=== PATIENT | male | born 1980 | race African-American/Black ===

== ENCOUNTER 2016-10-25 13:11 | Emergency (ER) | payer SELFPAY ==
[~2016-10-25] VITALS: Ht 188 cm; Wt 80.0 kg
[~2016-10-25 13:11] MED LIST: CYCL1TAB29 PO; IBUP800T23 PO
[2016-10-25 13:13] VITALS: BP 147/101; PULSE 109; RESP 14; TEMP 98.1; O2SAT 99
[2016-10-25] MEDS ORDERED: IBUP800T23 PO (14:41)
[2016-10-25] MEDS ORDERED: ROBA500T PO (14:41)
--- NOTE | 2016-10-25 14:41 | PD ---
HPI Chief Complaint: Back/ Neck Pain or Injury Time Seen by Provider: 14:39 Travel History International Travel<30 days: No Contact w/Intl Traveler<30days: No Traveled to known affect area: No History of Present Illness HPI 36-year-old male presents to the emergency Department with complaint of right lower back pain after moving wheelbarrows full of bricks yesterday. Denies encopresis, incontinence, saddle anesthesias. Denies paresthesias, loss of sensation, decreased range motion, decreased strength to bilateral lower extremities. Has not taken any medication or drainage from it to the base symptoms. Denies fever, chills, nausea, vomiting. Denies urinary symptoms. Denies IV drug use. Denies cancer. Pain is aggravated with movement. No known relieving factors. No other modifying factors or associated signs and symptoms. PFSH Past Medical History Hx Anticoagulant Therapy: No Heart Rhythm Problems: No Cardiac Catheterization: No Cardiovascular Problems: Yes (HTN) High Cholesterol: No Chemotherapy: No Congestive Heart Failure: No Cerebrovascular Accident: No Diabetes: No Diminished Hearing: No Hypertension: Yes Respiratory: No Past Surgical History Coronary Artery Bypass Graft: No Social History Alcohol Use: Yes (OCCASIONALY) Tobacco Use: Yes (1PPD) Substance Use: Yes (Marijuana- 2 blunts/day) Allergies-Medications (Allergen,Severity, Reaction): Coded Allergies: Tramadol (Verified Allergy, Intermediate, SWELLING, 04/25/16) Reported Meds & Prescriptions Reported Meds & Active Scripts Active Ibuprofen 800 Mg Tab 800 Mg PO Q6HR PRN Robaxin (Methocarbamol) 500 Mg Tab 500 Mg PO QID PRN Flexeril (Cyclobenzaprine HCl) 10 Mg Tab 10 Mg PO TID PRN Ibuprofen 800 Mg Tab 800 Mg PO Q6HR PRN Review of Systems Except as stated in HPI: all other systems reviewed are Neg Physical Exam Narrative GENERAL: Well-nourished, well-developed male patient, in no acute distress SKIN: Warm and dry. HEAD: Atraumatic. Normocephalic. EYES: Pupils equal and round. No scleral icterus. No injection or drainage. ENT: Mucosa pink and moist. Airway patent. NECK: Trachea midline. CARDIOVASCULAR: Regular rate. RESPIRATORY: No accessory muscle use. GASTROINTESTINAL: Flat. MUSCULOSKELETAL: Bilateral lower extremities supple and non-tense with 2+ pedal pulses and sensory intact; with full range of motion and 5/5 strength. 2 + DTRs. Active dorsiflexion and extension of bilateral feet. Right straight leg raises positive for low back pain. Left straight leg raise is negative for low back pain. Ambulatory with normal gait. Sitting up in bed at 90. No obvious deformities. No clubbing. No cyanosis. No edema. BACK: No midline point tenderness on palpation of the lumbar spine. Tenderness on palpation of right iliosacral area. No obvious deformities. NEUROLOGICAL: Awake and alert. Oriented 3. No obvious cranial nerve deficits. Motor grossly within normal limits. Normal speech. Moves all extremities. 5/5 strength to all extremities. Sensory intact. PSYCHIATRIC: Appropriate mood and affect; insight and judgment normal. Data Data Last Documented VS Vital Signs Date Time Temp Pulse Resp B/P Pulse Ox O2 Delivery O2 Flow Rate FiO2 10/25/16 13:13 98.1 109 14 147/101 99 Room Air Orders Ibuprofen (Motrin) (10/25/16 14:45) Methocarbamol (Robaxin) (10/25/16 14:45) MDM Medical Decision Making Medical Screen Exam Complete: Yes Emergency Medical Condition: Yes Medical Record Reviewed: Yes Differential Diagnosis Low back strain, acute low back pain, muscle spasm Narrative Course 36-year-old male physical examination consistent with right lower back strain. Ibuprofen and Robaxin administered in the ER. Ibuprofen and Robaxin prescribed for home. Patient is medically cleared and stable for discharge. Discussed reasons to return to the emergency department. Instructed patient to follow up with primary care provider. Patient agrees with treatment plan. The patients vital signs are stable and the patient is stable for outpatient follow-up and treatment. Patient discharged home, stable and in no acute distress. Diagnosis Primary Impression: Low back strain Qualified Code: S39.012A - Low back strain, initial encounter Referrals: Primary Care Physician Patient Instructions: General Instructions, Low Back Strain (ED) Additional Instructions: Tylenol or ibuprofen as directed and as needed for pain Robaxin as prescribed and as needed for muscle spasms Heating pad and/or ice to affected area to reduce pain Avoid aggravating activities; increase activity as tolerated Follow-up with primary care provider Return to emergency department immediately with worsening of symptoms Med/Other Pt SpecificInfo: Prescription(s) given Scripts Ibuprofen 800 Mg [id number] Mg PO Q6HR PRN (PAIN) #30 TAB Ref 0 Prov:Rassi,Sheron K CONSTRUCTION CONSULTANT 10/25/16 Methocarbamol (Robaxin)500 Mg [id number] Mg PO QID PRN (MUSCLE SPASM) #30 TAB Ref 0 Prov:Sheron Gonzalez 10/25/16 Disposition: 01 DISCHARGE HOME Condition: Stable Sheron Gonzalez Oct 25, 2016 14:41
[2016-10-25] MEDS ORDERED: METHOCARBAMOL 500 MG TAB PO ONE (14:45)
[2016-10-25] MEDS ORDERED: IBUPROFEN 800 MG TAB PO ONE (14:45)
[2017-01-09] MEDS ORDERED: NORC5TAB PO (13:08)
[2017-01-09] MEDS ORDERED: IBUP800T23 PO (13:08)
== END 2016-10-25 15:02 | disposition home or self-care (01) ==
LOC: NEPB 13:11
DX: S39.012A Strain of muscle, fascia and tendon of lower back, initial encounter (principal); I10 Essential (primary) hypertension; F17.210 Nicotine dependence, cigarettes, uncomplicated; X50.0XXA Overexertion from strenuous movement or load, initial encounter
CPT/HCPCS: 99282

== ENCOUNTER 2016-10-31 13:09 | Emergency (ER) | payer SELFPAY ==
[~2016-10-31] VITALS: Ht 188 cm; Wt 79.5 kg
[~2016-10-31 13:09] MED LIST changes: +ROBA500T PO
[2016-10-31 13:11] VITALS: BP 156/99; PULSE 72; RESP 16; TEMP 98.8; O2SAT 98
--- NOTE | 2016-10-31 13:35 | PD ---
HPI Chief Complaint: Laceration/Skin Injury Time Seen by Provider: 13:35 Travel History International Travel<30 days: No Contact w/Intl Traveler<30days: No Traveled to known affect area: No History of Present Illness HPI 56-year-old male presents to the emergency Department with complaint of right foot pain after stepping on a lavon nail last night. The nail was stuck in a board and when he stepped on it and lifted his foot the nail stayed intact in the board. Denies paresthesias, loss of sensation, decreased range of motion, decreased strength to the affected extremity. Pain is worse with pressure and walking. He is not up-to-date on his tetanus vaccination. Has not taken any medications or tried any treatments to alleviate his symptoms. Denies fever, chills, nausea, vomiting. Allergies to tramadol. No other modifying factors or associated signs and symptoms. PFSH Past Medical History Hx Anticoagulant Therapy: No Heart Rhythm Problems: No Cardiac Catheterization: No Cardiovascular Problems: Yes (HTN) High Cholesterol: No Chemotherapy: No Congestive Heart Failure: No Cerebrovascular Accident: No Diabetes: No Diminished Hearing: No Hypertension: Yes Respiratory: No Past Surgical History Coronary Artery Bypass Graft: No Social History Alcohol Use: Yes (OCCASIONALY) Tobacco Use: Yes (1PPD) Substance Use: Yes (Marijuana- 2 blunts/day) Allergies-Medications (Allergen,Severity, Reaction): Coded Allergies: Tramadol (Verified Allergy, Intermediate, SWELLING, 10/31/16) Reported Meds & Prescriptions Reported Meds & Active Scripts Active Ibuprofen 800 Mg Tab 800 Mg PO Q6HR PRN Keflex (Cephalexin) 500 Mg Cap 500 Mg PO Q8H 10 Days Ibuprofen 800 Mg Tab 800 Mg PO Q6HR PRN Robaxin (Methocarbamol) 500 Mg Tab 500 Mg PO QID PRN Flexeril (Cyclobenzaprine HCl) 10 Mg Tab 10 Mg PO TID PRN Ibuprofen 800 Mg Tab 800 Mg PO Q6HR PRN Review of Systems Except as stated in HPI: all other systems reviewed are Neg Physical Exam Narrative GENERAL: Well-nourished, well-developed male patient, in no acute distress SKIN: Warm and dry. Scabbed puncture wound noted to the ventral aspect of the right foot; without erythema, edema, drainage; without signs of infection. Right lower extremity is supple and non-tense with 2+ pedal pulses and sensory intact without erythema or edema. HEAD: Atraumatic. Normocephalic. EYES: Pupils equal and round. No scleral icterus. No injection or drainage. ENT: Mucosa pink and moist. Airway patent. NECK: Trachea midline. CARDIOVASCULAR: Regular rate. RESPIRATORY: No accessory muscle use. GASTROINTESTINAL: Flat. MUSCULOSKELETAL: No obvious deformities. No clubbing. No cyanosis. No edema. NEUROLOGICAL: Awake and alert. Oriented 3. No obvious cranial nerve deficits. Motor grossly within normal limits. Normal speech. PSYCHIATRIC: Appropriate mood and affect; insight and judgment normal. Data Data Last Documented VS Vital Signs Date Time Temp Pulse Resp B/P Pulse Ox O2 Delivery O2 Flow Rate FiO2 10/31/16 13:11 98.8 72 16 156/99 98 Room Air Orders Crutches (10/31/16 13:39) Tetanus/Diphtheria Tox Adult (Tetanus/Di (10/31/16 14:15) MDM Medical Decision Making Medical Screen Exam Complete: Yes Emergency Medical Condition: Yes Medical Record Reviewed: Yes Differential Diagnosis Puncture wound, medical clearance, wound infection Narrative Course 36-year-old male with a puncture wound to the bottom of his right foot obtained from a lavon nail. The nail was stuck in a board and remained intact in the board when he lifted his foot, removing the nail. Tetanus updated in the ER. I offered the patient a nonnarcotic for pain and he declined. Puncture site is without signs of infection; without erythema, edema, drainage. Crutches provided for support. Ibuprofen and Keflex prescribed for home. Patient is medically cleared and stable for discharge. Discussed reasons to return to the emergency department. Instructed patient to follow up with primary care provider. Patient agrees with treatment plan. The patients vital signs are stable and the patient is stable for outpatient follow-up and treatment. Patient discharged home, stable and in no acute distress. Diagnosis Primary Impression: Puncture wound of right foot excluding toes without complication Qualified Code: S91.331A - Puncture wound of right foot excluding toes without complication, initial encounter Referrals: Primary Care Physician Patient Instructions: General Instructions, Puncture Wound (ED) Departure Forms: Tests/Procedures, Work Release Enter return to work date: Nov 01, 2016 Additional Instructions: Keep area clean and dry Ibuprofen or Tylenol as directed and as needed for pain and inflammation Ice pack to area as needed to decrease pain Follow up with primary care provider Return to the emergency department immediately with worsening of symptoms, particularly if reddened streaks up or down the affected extremity from the puncture site, fever, numbness/tingling in the affected extremity, loss of sensation in the affected extremity, severe swelling of the affected Med/Other Pt SpecificInfo: Prescription(s) given Scripts Ibuprofen 800 Mg Uio565 Mg PO Q6HR PRN (PAIN) #30 TAB Ref 0 Prov:Sheron Gonzalez 10/31/16 Cephalexin (Keflex)500 Mg Lmg601 Mg PO Q8H 10 Days Ref 0 Prov:Sheron Gonzalez 10/31/16 Disposition: 01 DISCHARGE HOME Condition: Stable Sheron Gonzalez Oct 31, 2016 13:35
[2016-10-31] MEDS ORDERED: CEPH-460 PO (13:39)
[2016-10-31] MEDS ORDERED: IBUP800T23 PO (13:39)
[2016-10-31] MEDS ORDERED: TETANUS/DIPHTHERIA TOXOID ADULT 0.5 ML VIAL IM ONE (14:15)
[2017-01-09] MEDS ORDERED: IBUP800T23 PO (13:08)
[2017-01-09] MEDS ORDERED: NORC5TAB PO (13:08)
== END 2016-10-31 14:36 | disposition home or self-care (01) ==
LOC: NEPB 13:09
DX: S91.331A Puncture wound without foreign body, right foot, initial encounter (principal); I10 Essential (primary) hypertension; F17.210 Nicotine dependence, cigarettes, uncomplicated; F12.90 Cannabis use, unspecified, uncomplicated; W45.0XXA Nail entering through skin, initial encounter; Z23 Encounter for immunization
CPT/HCPCS: 90471; 90714; 99282; E0113

== ENCOUNTER 2017-01-01 23:43 | Emergency (ER) | payer SELFPAY ==
[~2017-01-01] VITALS: Ht 188 cm; Wt 83.0 kg
[~2017-01-01 23:43] MED LIST changes: +CEPH-460 PO
[2017-01-01 23:45] VITALS: BP 144/97; PULSE 105; RESP 16; TEMP 98.2; O2SAT 97
--- NOTE | 2017-01-02 00:08 | PD ---
HPI Chief Complaint: Injury Time Seen by Provider: 00:05 Travel History International Travel<30 days: No Contact w/Intl Traveler<30days: No Traveled to known affect area: No History of Present Illness HPI Patient comes in for evaluation of right hand pain began Monday night when he tripped and fell hitting his right hand on the corner of a doorway. Patient thought his hand was fine and has been taking [id number] medication as well as applying ice however he woke yesterday pain was worse. Pain is throbbing aching like in nature over the fifth metacarpal is worse with palpation and movement of his right hand. Denies any numbness or tingling. PFSH Past Medical History Hx Anticoagulant Therapy: No Heart Rhythm Problems: No Cardiac Catheterization: No Cardiovascular Problems: Yes (HTN) High Cholesterol: No Chemotherapy: No Congestive Heart Failure: No Cerebrovascular Accident: No Diabetes: No Diminished Hearing: No Hypertension: Yes Respiratory: No Past Surgical History Coronary Artery Bypass Graft: No Social History Alcohol Use: Yes (OCCASIONALY) Tobacco Use: Yes (1PPD) Substance Use: Yes (Marijuana- 2 blunts/day) Allergies-Medications (Allergen,Severity, Reaction): Coded Allergies: Tramadol (Verified Allergy, Intermediate, SWELLING, 10/31/16) Reported Meds & Prescriptions Reported Meds & Active Scripts Active Lortab (Hydrocodone-Acetaminophen) 5-325 Mg Tab 1 Tab PO Q8HR PRN Naprosyn (Naproxen) 500 Mg Tab 500 Mg PO Q12HR PRN Ibuprofen 800 Mg Tab 800 Mg PO Q6HR PRN Keflex (Cephalexin) 500 Mg Cap 500 Mg PO Q8H 10 Days Ibuprofen 800 Mg Tab 800 Mg PO Q6HR PRN Robaxin (Methocarbamol) 500 Mg Tab 500 Mg PO QID PRN Flexeril (Cyclobenzaprine HCl) 10 Mg Tab 10 Mg PO TID PRN Ibuprofen 800 Mg Tab 800 Mg PO Q6HR PRN Review of Systems Except as stated in HPI: all other systems reviewed are Neg Physical Exam Narrative GENERAL: Well-developed, well nourished, in no acute distress, and non-ill appearing. SKIN: Warm and dry. No abrasions or fight bite lesions appreciated on right hand. HEAD: Atraumatic. Normocephalic. EYES: Pupils equal and round. EOMI. No scleral icterus. No injection or drainage. ENT: No nasal bleeding or discharge. Mucous membranes pink and moist. NECK: Trachea midline. Supple. No nuclear rigidity. CARDIOVASCULAR: Radial pulses 2+, intact, equal bilaterally. Capillary refill less than 2 seconds. RESPIRATORY: No accessory muscle use. No respiratory distress. Clear to auscultation. Breath sounds equal bilaterally. GASTROINTESTINAL: Abdomen soft, non-tender, nondistended. Hepatic and splenic margins not palpable. Normal bowel sounds 4. No pulsatile mass. MUSCULOSKELETAL: No obvious deformities. No clubbing. No cyanosis. No edema. Decreased range of motion right fourth and fifth finger secondary to pain. Soft tissue swelling noted over fourth and fifth metatarsals right hand.Wrist: FROM and equal BL with passive flexion, extension, and pronation/supination. Capillary refill less than 2 seconds distal to injury and equal BL. FROM distal to injury and equal BL. Strength distal to injury equal BL. NV intact distal to injury. Flexion and extension of thumb equal BL. Equal strength and movement with abduction/adductions of BL fingers. 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 No tenderness to the anatomical snuffbox. NEUROLOGICAL: Awake and alert. No obvious cranial nerve deficits. Motor grossly within normal limits. Normal speech. PSYCHIATRIC: Appropriate mood and affect; insight and judgment normal. Data Data Last Documented VS Vital Signs Date Time Temp Pulse Resp B/P Pulse Ox O2 Delivery O2 Flow Rate FiO2 01/01/17 23:45 98.2 105 16 144/97 97 Room Air Orders Hand, Complete (Rod2ehw) (01/01/17 ) Ice/Cold Pack (01/01/17 23:52) Splint Or Brace Apply/Monitor (01/02/17 00:04) Acetamin-Hydrocod 325-5 Mg ([place] 5-325 (01/02/17 00:15) Mandatory Outpatient Referral (01/02/17 00:13) Sling Cradle Arm (01/02/17 ) Fiberglass Splint Forearm Adul (01/02/17 ) [facility] Medical Decision Making Medical Screen Exam Complete: Yes Emergency Medical Condition: Yes Differential Diagnosis Fracture, sprain, contusion, other Narrative Course The patient sustained a fracture. The distal extremity appears neurovascularly intact, without evidence of neurovascular injury nor compartment syndrome. Tendon exam also was intact. The effected limb was splinted. The patient was discharged on pain medication along with fracture and splint care instructions and given warnings for vascular compromise. The patient is to follow up with hand surgeon. The patient agrees with plan. Patient in no obvious distress upon re-evaluation. All pertinent Radiology result(s) discussed with patient. Patient was asked if they wanted to speak to my attending, which the patient did not wish to do at this time. Any questions/ concerns in reference to patient diagnosis/condition discussed and clarified prior to patient's discharge. Reinforced sheer importance of close follow up with hand surgeon. Instructed patient to return to ED immediately, if symptoms return/worsen. Pt showed understanding of above instructions. Further instructions and recommendations were detailed in discharge paperwork. Pt ambulated without difficulty out of ED at discharge. Diagnosis Primary Impression: Closed boxer's fracture Qualified Code: S62.309A - Closed boxer's fracture, initial encounter Referrals: Yin Abarca MD Patient Instructions: Boxer Fracture (ED), General Instructions, How to Use a Sling (GEN), Splint Care (ED) Additional Instructions: Follow-up with hand surgeon, Dr. Abarca, in 24-48 hours for reevaluation. Take all medication as prescribed. Apply ice to affected area 20 minutes per hour as needed for pain. Return to the emergency department if symptoms get worse. Med/Other Pt SpecificInfo: Prescription(s) given Scripts Hydrocodone-Acetaminophen (Lortab)5-325 Mg Tab1 Tab PO Q8HR PRN (PAIN GREATER THAN 7) #7 TAB Ref 0 Prov:Christian Pinedo MD 01/02/17 Naproxen (Naprosyn)500 Mg Fqw030 Mg PO Q12HR PRN (PAIN SCALE 1 TO 10) #14 TAB Ref 0 Prov:Christian Pinedo MD 01/02/17 Disposition: DISCHARGE HOME Condition: Stable Jerrod Sunshine Jan 02, 2017 00:08
[2017-01-02] MEDS ORDERED: NAPR500 PO (00:09)
[2017-01-02] MEDS ORDERED: HYDR-3533 PO (00:09)
[2017-01-02] MEDS ORDERED: ACETAMINOPHEN/HYDROcodone 325 MG/5 MG TAB PO ONE (00:15)
--- NOTE | 2017-01-02 00:56 | RADRPT ---
EXAM DATE/TIME: 01/01/2017 23:49 [facility] COMPARISON: No previous studies available for comparison. INDICATIONS : Right hand pain from a fall into a wall. MEDICAL HISTORY : None. SURGICAL HISTORY : None. ENCOUNTER: Initial ACUITY: 1 day PAIN SCORE: 10/10 LOCATION: Right Hand FINDINGS: Three view examination of the right hand demonstrates soft tissue swelling with mildly displaced frac ture base of fifth metacarpal. No other fracture. Bony mineralization is normal. CONCLUSION: Mildly displaced fracture base of fifth metacarpal. Zak Cortez MD on January 02, 2017 at 0:53 Board Certified Radiologist. This report was verified electronically.
[2017-01-09] MEDS ORDERED: IBUP800T23 PO (13:08)
[2017-01-09] MEDS ORDERED: NORC5TAB PO (13:08)
== END 2017-01-02 01:00 | disposition home or self-care (01) ==
LOC: NEPB 23:43
DX: S62.316A Displaced fracture of base of fifth metacarpal bone, right hand, initial encounter for closed fracture (principal); W01.0XXA Fall on same level from slipping, tripping and stumbling without subsequent striking against object, initial encounter
CPT/HCPCS: 29125; 73130

== ENCOUNTER → 2017-01-09 | Day surgery (SDC) | payer SELFPAY ==
[~2017-01-09] VITALS: Ht 188 cm; Wt 82.0 kg
[~2017-01-09] MED LIST changes: +BUPIVACAINE HCL PF 0.5% 30 ML VIAL NERV BLOCK ONE; +BUPIVACAINE HCL PF 0.5% 30 ML VIAL ONE; -CEPH-460 PO; +DEXAMETHASONE SOD PHOS 4 MG/ML VIAL ONE; +DEXT 5%-NACL 0.45% 1000 ML INJ 1,000 ML IV SCH; +FAMOTIDINE 20 MG/2 ML VIAL ONE; +LACTATED RINGER'S 1000 ML INJ 1,000 ML ONE; +LISI-515 PO; +MIDAZOLAM HCL 5 MG/ML VIAL (1 ML) ONE; +NORC5TAB PO; +ONDANSETRON HCL 4 MG/2 ML VIAL IV PUSH ONE; +PROPOFOL 200 MG/20 ML AMP IV ONE; -ROBA500T PO; +SODIUM CHLORIDE 0.9% FLUSH 5 ML FLUSH IVF PRN; +SODIUM CHLORIDE 0.9% FLUSH 5 ML FLUSH IVF SCH; +ceFAZolin 2 GM PREMIX 50 ML ONE; +fentaNYL CITRATE 250 MCG/5 ML AMP ONE
--- NOTE | 2017-01-09 09:38 | HP.UPD ---
H&P Update Date: Jan 09, 2017 Note The Pre-Admit History and Physical Examination regarding the above named patient was reviewed (including, but not limited to, vital signs, medications, allergies, co-morbid conditions), and upon re-examination it is noted that: Indicated with "X" x - the patient's condition has not significantly changed since the last examination. [] - the patient's condition has changed since the last examination. Changes: Yin Abarca MD Jan 09, 2017 09:38
[2017-01-09 09:46] LABS: MEAN CELL VOLUME 85.7 FL (80.0-100.0); MEAN CORPUSCULAR HEMOGLOBIN 28.2 PG (27.0-34.0); MEAN CORPUSCULAR HGB CONC 32.9 % (32.0-36.0); PLATELET COUNT 236 TH/MM3 (150-450); RED BLOOD COUNT 5.25 MIL/MM3 (4.50-5.90); RED CELL DISTRIBUTION WIDTH 13.4 % (11.6-17.2); REVIEW FLAG FINAL; WHITE BLOOD COUNT 8.9 TH/MM3 (4.0-11.0)
[2017-01-09 09:48] VITALS: BP 146/96; PULSE 63; RESP 20; TEMP 97.9; O2SAT 100
[2017-01-09 09:50] VITALS: PULSE 64
[2017-01-09 10:00] VITALS: PULSE 74
[2017-01-09 12:37] VITALS: PULSE 90
--- NOTE | 2017-01-09 13:09 | HHI.PR ---
Immediate Post Op Note Procedure Date: Jan 09, 2017 Pre Op Diagnosis: (1) Closed fracture of shaft of metacarpal bone Post Op Diagnosis: (1) Closed fracture of shaft of metacarpal bone Surgeon: Yin Abarca Hands Parter(s): None Procedure: ORIF right fifth metacarpal fracture. Anesthesia: General Drains: None Tourniquet time (min at mmHg) 55 minutes at 225 mm Hg Patient to: PACU Patient Condition: Good Implant/Devices: SEE IMPLANT LOG (if applicable) Date/Time of Procedure: SEE SURGICAL CARE RECORD Yin Abarca MD Jan 09, 2017 13:09
[2017-01-09 13:15] VITALS: TEMP 98.3
[2017-01-09 13:45] VITALS: BP 132/82; PULSE 77; RESP 14; O2SAT 97
--- NOTE | 2017-01-11 15:23 | MP ---
cc: MICHEAL TEJEDA M.D. DATE OF SURGERY: 01/09/2017 PREOPERATIVE DIAGNOSIS Closed fracture of the shaft of the right fifth metacarpal. POSTOPERATIVE DIAGNOSIS Closed fracture of the shaft of the right fifth metacarpal. PROCEDURE Open reduction, internal fixation of the right fifth metacarpal fracture. ANESTHESIA General. SURGEON Dr. Tejeda INDICATIONS A 36-year-old male who apparently punched a hard object sustaining a fracture of the shaft of his right fifth metacarpal. FINDINGS At the completion of the procedure there was anatomic reduction of the fracture and stabilization with internal plates and screws. TOURNIQUET TIME 55 minutes. DETAILS OF PROCEDURE The patient was seen preoperatively where the site and side were identified and marked. The patient was then taken to the operating room, placed in a supine position. His identity was checked against the arm band and the consent form, site and side confirmed. A timeout was called prior to beginning the procedure. The right upper extremity was prepped with Hibiclens and draped in the usual sterile fashion. The area to be incised was outlined with a marking pen as a longitudinal incision over the area of the fracture. The arm was then exsanguinated and the tourniquet inflated to 225 mmHg. A #15 blade was then used to make the incision down through the skin down to the subcutaneous tissue. Under loupe magnification using the spread technique superficial vessels and nerves were identified and retracted. The extensor tendons were identified and retracted to expose periosteum over the bone. This was then incised with a second knife and the periosteum was split off of the bone. The ends were identified. They were from surrounding structures. They were curetted and cleansed with a curet and rongeur. They were then allowed to fall back into place and held in place with a bone-holding clamp and a plate was affixed to the dorsal surface using standard technique of drilling a hole, checking the depth and placing the screw. We did use one of the holes as a compression screw. Once there was adequate fixation and the plate was in place another screw was drilled obliquely across the fracture area as a lag-type screw in order to compress the fracture site. Once this was in place the wound was copiously irrigated with saline. The tissue over the plate was repaired using 4-0 Vicryl suture material. The dermal layer was approximated with 4-0 Vicryl suture material and the skin was closed with a running 4-0 nylon. The tourniquet was released after 55 minutes of tourniquet time. Pressure was applied. After several minutes there was no evidence of any oozing. A dressing was applied using povidone-iodine ointment, Adaptic, Telfa, 4x4s, hand wrap and a palmar splint. The patient was then taken from the operating room to the recovery room in satisfactory condition having tolerated the procedure well. Postoperative instructions include keeping the arm elevated, keeping it clean and dry, and returning in several days for follow-up. The patient was given a prescription for ibuprofen and [place]. In addition, the patient had an upper extremity block in the holding area prior to surgery. MD SUZANNE Easton/RIGOBERTO /3:08 PM /3:10 PM
== END | disposition home or self-care (01) ==
LOC: PHSDC 08:26
PROVIDERS: ATTEND Specialist
DX: S62.326A Displaced fracture of shaft of fifth metacarpal bone, right hand, initial encounter for closed fracture (principal); I10 Essential (primary) hypertension; W01.0XXA Fall on same level from slipping, tripping and stumbling without subsequent striking against object, initial encounter
CPT/HCPCS: 01830; 26615; 36415; 76000; 85027; C1713; J0690; J1100; J2250; J2405; J3010; J7120

== ENCOUNTER 2017-03-08 14:51 | Emergency (ER) | payer SELFPAY ==
[~2017-03-08] VITALS: Ht 188 cm; Wt 80.0 kg
[2017-03-08 14:53] VITALS: BP 155/106; PULSE 91; RESP 12; TEMP 99.1; O2SAT 100
--- NOTE | 2017-03-08 15:02 | PD ---
Physical Exam Time Seen by Provider: 15:01 Narrative 36yo M c/o R thumb pain. Thinks he jammed it or broke it yesterday while moving something. Patient seen in triage. VS reviewed. Awaiting bed placement. Data Data Last Documented VS Vital Signs Date Time Temp Pulse Resp B/P Pulse Ox O2 Delivery O2 Flow Rate FiO2 03/08/17 14:53 99.1 91 12 155/106 100 MDM Supervised Visit with JOSE: No Scripts No Active Prescriptions or Reported Meds Sheron Gonzalez March 08, 2017 15:02
[2017-03-08] MEDS ORDERED: IBUPROFEN 800 MG TAB PO ONE (15:45)
--- NOTE | 2017-03-08 15:56 | RADRPT ---
EXAM DATE/TIME: 03/08/2017 15:24 [facility] COMPARISON: HAND RIGHT COMPLETE ([id number]), January 01, 2017, 23:49. INDICATIONS : Right hand pain after moving heavy object and jamming first digit. MEDICAL HISTORY : None. SURGICAL HISTORY : Right first digit fracture repair. Right fifth digit surgery. ENCOUNTER: Initial ACUITY: 2 days PAIN SCORE: 8/10 LOCATION: Right hand, first digit FINDINGS: 3 views of the right hand. Internal fixation hardware is in place at the medial aspect of the fifth m etacarpal shaft. Bone bridging is seen at the fifth metacarpal shaft fracture site. CONCLUSION: Healing fifth metacarpal shaft fracture status post ORIF. Wellington Patel MD on March 08, 2017 at 15:53 Board Certified Radiologist. This report was verified electronically.
[2017-03-08] MEDS ORDERED: IBUP800T23 PO (16:00)
[2017-03-08] MEDS ORDERED: CYCL1TAB29 PO (16:00)
--- NOTE | 2017-03-08 16:00 | PD ---
HPI Chief Complaint: Injury Time Seen by Provider: 15:30 Travel History International Travel<30 days: No Contact w/Intl Traveler<30days: No Traveled to known affect area: No History of Present Illness HPI Patient is a 36 year old male presenting to the emergency for evaluation of left pain. Patient states he believes he injured it moving furniture yesterday. He reports the pain as an 8 out of 10 and states it is sore and swollen. He denies any numbness or tingling, no weakness. PFSH Past Medical History Hx Anticoagulant Therapy: No Heart Rhythm Problems: No Cardiac Catheterization: No Cardiovascular Problems: Yes (HTN) High Cholesterol: No Chemotherapy: No Congestive Heart Failure: No Cerebrovascular Accident: No Diabetes: No Diminished Hearing: No Hypertension: Yes Respiratory: No Past Surgical History AICD: No Coronary Artery Bypass Graft: No Joint Replacement: No Pacemaker: No Social History Alcohol Use: Yes (OCCASIONALY) Tobacco Use: Yes (1PPD) Substance Use: No Allergies-Medications (Allergen,Severity, Reaction): Coded Allergies: Robaxin (Verified Allergy, Severe, RASH, 03/08/17) Toradol (Verified Allergy, Severe, Swelling, 03/08/17) Tramadol (Verified Allergy, Severe, RASH, 03/08/17) Reported Meds & Prescriptions Reported Meds & Active Scripts Active Lisinopril 20 Mg Tab 20 Mg PO DAILY Flexeril (Cyclobenzaprine HCl) 10 Mg Tab 10 Mg PO TID PRN 5 Days Ibuprofen 800 Mg Tab 800 Mg PO Q6HR PRN Review of Systems Except as stated in HPI: all other systems reviewed are Neg Musculoskeletal: Positive: Myalgias, Edema, Pain Physical Exam Narrative GENERAL: Well-nourished, well-developed patient. SKIN: Focused skin assessment warm/dry. HEAD: Normocephalic. EYES: No scleral icterus. No injection or drainage. NECK: Supple, trachea midline. No JVD or lymphadenopathy. CARDIOVASCULAR: Regular rate and rhythm without murmurs, gallops, or rubs. RESPIRATORY: Breath sounds equal bilaterally. No accessory muscle use. GASTROINTESTINAL: Abdomen soft, non-tender, nondistended. MUSCULOSKELETAL: No cyanosis, or edema. No obvious deformities noted. Decreased flexion of left thumb. Patient is neurovascularly intact. BACK: Nontender without obvious deformity. No CVA tenderness. Data Data Last Documented VS Vital Signs Date Time Temp Pulse Resp B/P Pulse Ox O2 Delivery O2 Flow Rate FiO2 03/08/17 14:53 99.1 91 12 155/106 100 Orders Hand, Complete ([id number]) (03/08/17 15:04) Ibuprofen (Motrin) (03/08/17 15:45) [facility] Medical Decision Making Medical Screen Exam Complete: Yes Emergency Medical Condition: Yes Interpretation(s) Vital Signs Date Time Temp Pulse Resp B/P Pulse Ox O2 Delivery O2 Flow Rate FiO2 03/08/17 14:53 99.1 91 12 155/106 100 Differential Diagnosis Fracture versus sprain versus strain versus other Narrative Course Patient is a 36-year-old male presenting to the emergency department for evaluation of left thumb pain. Patient is neurovascularly intact. Imaging ordered and pending, patient given ibuprofen for pain. Imaging is negative for acute fracture or dislocation. It does mention previous surgical repair of the fifth metacarpal. Patient was encouraged to rest, ice, elevate extremity. He was encouraged to take medications as needed and as directed for pain. He was advised to avoid exacerbating activities. He was advised to return to emergency department for any new or worsening symptoms. He verbalized understanding of instructions. Patient is stable for discharge Diagnosis Primary Impression: Hand sprain Qualified Code: S63.90XA - Hand sprain, unspecified laterality, initial encounter Referrals: [facility] Primary Care Physician Patient Instructions: General Instructions, Hand Sprain (ED) Additional Instructions: Follow-up with your primary doctor Take medications as directed Return to emergency department for any new or worsening symptoms Continue range of motion exercises, apply warm moist heat to affected area, avoid exacerbating activities Med/Other Pt SpecificInfo: Prescription(s) given Scripts Lisinopril 20 Mg Tab20 Mg PO DAILY #30 TAB Ref 0 Prov:Brittni Akhtar 03/08/17 Cyclobenzaprine (Flexeril)10 Mg Tab10 Mg PO TID PRN (MUSCLE SPASM) 5 Days Ref 0 Prov:Brittni Akhtar 03/08/17 Ibuprofen 800 Mg [id number] Mg PO Q6HR PRN (PAIN) #40 TAB Ref 0 Prov:Brittni Akhtar 03/08/17 Brittni Akhtar March 08, 2017 16:00
[2017-03-08] MEDS ORDERED: LISI-515 PO (16:03)
== END 2017-03-08 16:23 | disposition home or self-care (01) ==
LOC: NEPK 14:51
DX: S63.90XA Sprain of unspecified part of unspecified wrist and hand, initial encounter (principal); X58.XXXA Exposure to other specified factors, initial encounter
CPT/HCPCS: 73130; 99284

== ENCOUNTER 2017-11-25 16:27 | Emergency (ER) | payer SELFPAY ==
[~2017-11-25] VITALS: Ht 188 cm; Wt 80.0 kg
[~2017-11-25 16:27] MED LIST changes: -BUPIVACAINE HCL PF 0.5% 30 ML VIAL NERV BLOCK ONE; -BUPIVACAINE HCL PF 0.5% 30 ML VIAL ONE; +CYCL10TA PO; -CYCL1TAB29 PO; -DEXAMETHASONE SOD PHOS 4 MG/ML VIAL ONE; -DEXT 5%-NACL 0.45% 1000 ML INJ 1,000 ML IV SCH; -FAMOTIDINE 20 MG/2 ML VIAL ONE; +IBUP1TAB7 PO; -IBUP800T23 PO; -LACTATED RINGER'S 1000 ML INJ 1,000 ML ONE; -MIDAZOLAM HCL 5 MG/ML VIAL (1 ML) ONE; -NORC5TAB PO; -ONDANSETRON HCL 4 MG/2 ML VIAL IV PUSH ONE; -PROPOFOL 200 MG/20 ML AMP IV ONE; -SODIUM CHLORIDE 0.9% FLUSH 5 ML FLUSH IVF PRN; -SODIUM CHLORIDE 0.9% FLUSH 5 ML FLUSH IVF SCH; -ceFAZolin 2 GM PREMIX 50 ML ONE; -fentaNYL CITRATE 250 MCG/5 ML AMP ONE
[2017-11-25 16:33] VITALS: BP 188/114; PULSE 110; RESP 18; TEMP 97.5; O2SAT 100
--- NOTE | 2017-11-25 16:54 | RADRPT ---
EXAM DATE/TIME: 11/25/2017 16:43 [facility] COMPARISON: No previous studies available for comparison. INDICATIONS : Left hand pain after moving furniture. MEDICAL HISTORY : None. SURGICAL HISTORY : None. ENCOUNTER: Initial ACUITY: 2 days PAIN SCORE: 10/10 LOCATION: Left hand. FINDINGS: Three views of the left hand demonstrate no fracture or dislocation. Mineralization is within normal limits and there is no significant arthropathy. No soft tissue abnormality or radiopaque foreign body is identified. CONCLUSION: No acute abnormality is identified. Taurus Salinas MD on November 25, 2017 at 16:51 Board Certified Radiologist. This report was verified electronically.
[2017-11-25] MEDS ORDERED: MOBI15TA PO (18:09)
--- NOTE | 2017-11-25 18:09 | PD ---
HPI Chief Complaint: Injury Time Seen by Provider: 17:48 Travel History International Travel<30 days: No Contact w/Intl Traveler<30days: No Traveled to known affect area: No History of Present Illness HPI 37-year-old male complains of left hand pain. Patient states that he started having sharp pain on the dorsal aspect of the left hand after moving furniture yesterday. Patient stated the pain is sharp pain localized to dorsal aspect the left hand. Patient denies any pain radiation. Patient states that the pain is worse with movement of the left hand and left wrist. On a scale from 1- 10 the pain is a 10. Patient has history of recurrent injury to her left hand in the past. PFSH Past Medical History Hx Anticoagulant Therapy: No Heart Rhythm Problems: No Cardiac Catheterization: No Cardiovascular Problems: Yes (HTN) High Cholesterol: No Chemotherapy: No Congestive Heart Failure: No Cerebrovascular Accident: No Diabetes: No Diminished Hearing: No Hypertension: Yes Respiratory: No Past Surgical History AICD: No Coronary Artery Bypass Graft: No Joint Replacement: No Pacemaker: No Social History Alcohol Use: Yes (OCCASIONALY) Tobacco Use: Yes (1PPD) Substance Use: No Allergies-Medications (Allergen,Severity, Reaction): Coded Allergies: ketorolac (Unverified Allergy, Severe, Swelling, 05/23/17) methocarbamol (Unverified Allergy, Severe, RASH, 05/23/17) tramadol (Unverified Allergy, Severe, RASH, 05/23/17) Reported Meds & Prescriptions Reported Meds & Active Scripts Active No Active Prescriptions or Reported Medications Review of Systems General / Constitutional: No: Fever Eyes: No: Visual changes HENT: No: Headaches Cardiovascular: No: Chest Pain or Discomfort Respiratory: No: Shortness of Breath Gastrointestinal: No: Abdominal Pain Genitourinary: No: Dysuria Musculoskeletal: Positive: Pain Skin: No Rash Neurologic: No: Weakness Psychiatric: No: Depression Endocrine: No: Polydipsia Hematologic/Lymphatic: No: Easy Bruising Physical Exam Narrative GENERAL: Well-nourished, well-developed patient. SKIN: Focused skin assessment warm/dry. HEAD: Normocephalic. EYES: No scleral icterus. No injection or drainage. NECK: Supple, trachea midline. No JVD or lymphadenopathy. CARDIOVASCULAR: Regular rate and rhythm without murmurs, gallops, or rubs. RESPIRATORY: Breath sounds equal bilaterally. No accessory muscle use. GASTROINTESTINAL: Abdomen soft, non-tender, nondistended. MUSCULOSKELETAL: No cyanosis, or edema. BACK: Nontender without obvious deformity. No CVA tenderness. Patient has moderate tenderness to palpation dorsal aspect of the left hand. No redness no swelling no deformity noted. Full range of motion of the fingers. Data Data Last Documented VS Vital Signs Date Time Temp Pulse Resp B/P (MAP) Pulse Ox O2 Delivery O2 Flow Rate FiO2 11/25/17 16:33 97.5 110 18 188/114 (138) 100 Orders Orders Hand, Complete ([id number]) (11/25/17 ) [facility] Medical Decision Making Medical Screen Exam Complete: Yes Emergency Medical Condition: Yes Differential Diagnosis Differential diagnosis includes tendinitis, tendon injury, fracture, dislocation. Narrative Course 37-year-old male with left-handed pain. Status post lifting yesterday. Patient has history of recurrent left hand injury in the past. Velcro wrist splint applied. Diagnosis Primary Impression: Injury of tendon of left hand Qualified Codes: S66.902A - Unspecified injury of unspecified muscle, fascia and tendon at wrist and hand level, left hand, initial encounter Patient Instructions: General Instructions Additional Instructions: Ice pack as needed. Mobic as needed for pain. Wear wrist splint. Follow-up with hand surgeon. No heavy lifting until cleared by hand surgeon. Med/Other Pt SpecificInfo: Prescription(s) given Scripts Meloxicam (Mobic) 15 Mg Tab 15 MG PO DAILY for Pain, #20 TAB 0 Refills Prov: Bert Cabezas MD 11/25/17 Disposition: 01 DISCHARGE HOME Condition: Stable Bert Cabezas MD Nov 25, 2017 18:09
== END 2017-11-25 18:37 | disposition home or self-care (01) ==
LOC: NEPD 16:27
DX: S66.902A Unspecified injury of unspecified muscle, fascia and tendon at wrist and hand level, left hand, initial encounter (principal); I10 Essential (primary) hypertension; F17.200 Nicotine dependence, unspecified, uncomplicated; Z88.5 Allergy status to narcotic agent; Z88.8 Allergy status to other drugs, medicaments and biological substances; X50.0XXA Overexertion from strenuous movement or load, initial encounter
CPT/HCPCS: 73130; 99283; L3908

== ENCOUNTER 2018-01-16 11:04 | Emergency (ER) | payer SELFPAY ==
[~2018-01-16 11:04] MED LIST changes: -CYCL10TA PO; -IBUP1TAB7 PO; -LISI-515 PO; +MOBI15TA PO
[2018-01-16 11:30] VITALS: BP 140/82; PULSE 75; RESP 16; TEMP 99; O2SAT 100
[2018-01-16] MEDS ORDERED: IBUP1TAB7 PO (12:34)
[2018-01-16] MEDS ORDERED: CYCL10TA PO (12:34)
--- NOTE | 2018-01-16 12:35 | PD ---
HPI Chief Complaint: Fall Time Seen by Provider: 12:11 Travel History International Travel<30 days: No Contact w/Intl Traveler<30days: No Traveled to known affect area: No History of Present Illness HPI 37-year-old male presents to emergency department with complaint of left lower back pain after slipping off of a ladder yesterday and falling approximately 6 feet. He denies hitting his head or loss of consciousness. Denies neck pain. Denies encopresis, incontinence, saddle anesthesias. Denies paresthesias, loss of sensation, decreased range of motion, decreased strength to all extremities. Is ambulatory without difficulty. Denies chest pain, shortness of breath, abdominal pain, vomiting. Denies change in urine or stool. Rates pain 6/10. Says it is not constant. Worse with twisting and turning. Pain is better at rest. Has not taken any medications or trying treatments to alleviate his symptoms. Denies significant past medical history. Allergies to Toradol, tramadol, Robaxin. No primary care provider. Has no other medical complaints. No other modifying factors or associated signs and symptoms. PFSH Past Medical History Hx Anticoagulant Therapy: No Heart Rhythm Problems: No Cardiac Catheterization: No Cardiovascular Problems: Yes (HTN) High Cholesterol: No Chemotherapy: No Congestive Heart Failure: No Cerebrovascular Accident: No Diabetes: No Diminished Hearing: No Hypertension: Yes Respiratory: No Tetanus Vaccination: < 5 Years Past Surgical History AICD: No Coronary Artery Bypass Graft: No Joint Replacement: No Pacemaker: No Other Surgery: Yes Social History Alcohol Use: Yes (OCCASIONALY) Tobacco Use: Yes (1PPD) Substance Use: No Allergies-Medications (Allergen,Severity, Reaction): Coded Allergies: ketorolac (Unverified Allergy, Severe, Swelling, 01/16/18) methocarbamol (Unverified Allergy, Severe, RASH, 01/16/18) tramadol (Unverified Allergy, Severe, RASH, 01/16/18) Reported Meds & Prescriptions Reported Meds & Active Scripts Active Ibuprofen 800 Mg Tab 800 Mg PO Q6HR PRN Flexeril (Cyclobenzaprine HCl) 10 Mg Tab 10 Mg PO TID PRN Review of Systems Except as stated in HPI: all other systems reviewed are Neg Physical Exam Narrative GENERAL: Well-nourished, well-developed black male patient, in no acute distress ; afebrile, nontoxic-appearing SKIN: Warm and dry. HEAD: Atraumatic. Normocephalic. EYES: Pupils equal and round. No scleral icterus. No injection or drainage. ENT: Mucosa pink and moist. Airway patent. NECK: Trachea midline. CARDIOVASCULAR: Regular rate. RESPIRATORY: No accessory muscle use. GASTROINTESTINAL: Flat. MUSCULOSKELETAL: Bilateral lower extremities supple and non-tense with 2+ pedal pulses and sensory intact; with full range of motion and 5/5 strength. 2 + DTRs bilaterally. Active dorsiflexion and extension of bilateral feet. Bilateral straight leg raise is negative for low back pain. Ambulatory in room with normal gait. Sitting up in bed at 90. No obvious deformities. No clubbing. No cyanosis. No edema. BACK: No midline point tenderness on palpation of the lumbar spine. Tenderness on palpation of left lumbar iliosacral area. No obvious deformities. NEUROLOGICAL: Awake and alert. Oriented 3. No obvious cranial nerve deficits. Motor grossly within normal limits. Normal speech. Moves all extremities. 5/5 strength to all extremities. Sensory intact. PSYCHIATRIC: Appropriate mood and affect; insight and judgment normal. Data Data Last Documented VS Vital Signs Date Time Temp Pulse Resp B/P (MAP) Pulse Ox O2 Delivery O2 Flow Rate FiO2 01/16/18 11:30 99.0 75 16 140/82 (101) 100 Orders Orders Ibuprofen (Motrin) (01/16/18 12:45) Ed Discharge Order (01/16/18 12:35) [facility] Medical Decision Making Medical Screen Exam Complete: Yes Emergency Medical Condition: Yes Medical Record Reviewed: Yes Differential Diagnosis Fall, low back strain, low back pain Narrative Course 37-year-old male with left lower back pain and back strain after slip and fall from a ladder yesterday. Denies hitting his head or loss of consciousness. Denies neck pain. Denies encopresis, incontinence, saddle anesthesias. No midline tenderness on palpation of the lumbar spine. Patient ambulatory in the room with a normal gait. Neuro exam is unremarkable. Patient allergic to Robaxin, Toradol. Ibuprofen administered in the ER. Flexeril and ibuprofen prescribed for home. Instructed patient to follow up with primary care provider. Patient verbalizes understanding and agreement with treatment plan. Patient is medically cleared and stable for discharge. Discussed reasons to return to the emergency department. Patient agrees with treatment plan. The patients vital signs are stable and the patient is stable for outpatient follow- up and treatment. Patient discharged home, stable and in no acute distress. Diagnosis Primary Impression: Low back strain Qualified Codes: S39.012A - Strain of muscle, fascia and tendon of lower back , initial encounter Additional Impression: Acute left-sided low back pain Qualified Codes: M54.5 - Low back pain Referrals: [facility] Primary Care Physician Patient Instructions: Acute Low Back Pain (ED), Fall Prevention (ED), General Instructions, Low Back Strain (ED) Additional Instructions: Tylenol or ibuprofen as directed and as needed for pain Robaxin as prescribed and as needed for muscle spasms Heating pad and/or ice to affected area to reduce pain Avoid aggravating activities; increase activity as tolerated Follow-up with primary care provider Return to emergency department immediately with worsening of symptoms Med/Other Pt SpecificInfo: Prescription(s) given Scripts Ibuprofen (Ibuprofen) 800 Mg Tab 800 MG PO Q6HR Y for PAIN, #30 TAB 0 Refills Prov: Sheron Gonzalez 01/16/18 Cyclobenzaprine (Flexeril) 10 Mg Tab 10 MG PO TID Y for MUSCLE SPASM, #10 TAB 0 Refills Prov: Sheron Gonzalez 01/16/18 Disposition: 01 DISCHARGE HOME Condition: Stable Sheron Gonzalez Jan 16, 2018 12:35
[2018-01-16] MEDS ORDERED: IBUPROFEN 800 MG TAB PO ONE (12:45)
== END 2018-01-16 12:41 | disposition home or self-care (01) ==
LOC: NEPK 11:04
DX: S39.012A Strain of muscle, fascia and tendon of lower back, initial encounter (principal); I10 Essential (primary) hypertension; F17.200 Nicotine dependence, unspecified, uncomplicated; W11.XXXA Fall on and from ladder, initial encounter; Z88.8 Allergy status to other drugs, medicaments and biological substances
CPT/HCPCS: 99283

== ENCOUNTER 2018-03-25 09:48 | Emergency (ER) | payer SELFPAY ==
[~2018-03-25 09:48] MED LIST changes: +CYCL10TA PO; +IBUP1TAB7 PO; -MOBI15TA PO
--- NOTE | 2018-03-25 10:04 | PD ---
HPI Chief Complaint: Injury Time Seen by Provider: 09:59 Travel History International Travel<30 days: No Contact w/Intl Traveler<30days: No Traveled to known affect area: No History of Present Illness HPI 37-year-old [id number] male presents the ED for evaluation of right elbow pain. 0 at rest, 6/10, sharp with touch or range of motion. Patient states that he hit the elbow on a table a few days ago. He endorses chronic paresthesias in the hand secondary to surgery. He denies weakness, limitations to range of motion. He is never injured this elbow before. No treatment before arrival. PFSH Past Medical History Hx Anticoagulant Therapy: No Heart Rhythm Problems: No Cardiac Catheterization: No Cardiovascular Problems: Yes (HTN) High Cholesterol: No Chemotherapy: No Congestive Heart Failure: No Cerebrovascular Accident: No Diabetes: No Diminished Hearing: No Hypertension: Yes Respiratory: No Tetanus Vaccination: < 5 Years Past Surgical History AICD: No Coronary Artery Bypass Graft: No Joint Replacement: No Pacemaker: No Other Surgery: Yes Social History Alcohol Use: Yes (OCCASIONALY) Tobacco Use: Yes (1PPD) Substance Use: No Allergies-Medications (Allergen,Severity, Reaction): Coded Allergies: ketorolac (Unverified Allergy, Severe, Swelling, 03/25/18) methocarbamol (Unverified Allergy, Severe, RASH, 03/25/18) tramadol (Unverified Allergy, Severe, RASH, 03/25/18) Reported Meds & Prescriptions Reported Meds & Active Scripts Active Ibuprofen 800 Mg Tab 800 Mg PO Q8H PRN Review of Systems Except as stated in HPI: all other systems reviewed are Neg Physical Exam Narrative GENERAL: Well-nourished, well-developed -[place] male in no acute distress. SKIN: Focused skin assessment warm/dry. HEAD: Normocephalic. EYES: No scleral icterus. No injection or drainage. NECK: Supple, trachea midline. No JVD or lymphadenopathy. CARDIOVASCULAR: Regular rate and rhythm without murmurs, gallops, or rubs. RESPIRATORY: Breath sounds equal bilaterally. No accessory muscle use. GASTROINTESTINAL: Abdomen soft, non-tender, nondistended. MUSCULOSKELETAL: No cyanosis, or edema. FOCUSED RIGHT UPPER EXTREMITY EXAM: 2+ radial pulse. Tenderness to palpation of the olecranon. No edema or ecchymosis noted. No erythema or warmth. No limitations to flexion, extension pronation or supination of the elbow. Neurovascularly intact distally. BACK: Nontender without obvious deformity. No CVA tenderness. Data Data Orders Orders Elbow, Complete (4 Vws) (03/25/18 10:01) Ice/Cold Pack (03/25/18 10:01) Ibuprofen (Motrin) (03/25/18 10:15) Ed Discharge Order (03/25/18 11:16) [facility] Medical Decision Making Medical Screen Exam Complete: Yes Emergency Medical Condition: Yes Differential Diagnosis Contusion versus bursitis versus less likely fracture versus other Narrative Course 37-year-old [id number] male presents the ED for evaluation of right elbow pain. Vitals reviewed. On exam the patient has point tenderness of the olecranon. There is no edema or ecchymosis, warmth or erythema noted. Patient retains flexion, extension pronation and supination. X-ray reveals no acute bony injury by my read. This contusion of the elbow. Patient's prescribed a short course of anti-inflammatories, first dose administered in the ED. He is instructed to use RICE therapy, return to normal, gentle activity as tolerated, follow with primary care provider. He is stable and discharged home. Diagnosis Primary Impression: Contusion of right elbow Qualified Codes: S50.01XA - Contusion of right elbow, initial encounter Referrals: Primary Care Physician Additional Instructions: Rest, ice, elevate the extremity. Apply ice no longer than 10-15 minutes per hour a few times a day. 800 mg ibuprofen up to 3 times a day as needed for pain. Return to normal, gentle activity as tolerated. Follow up with orthopedist or your primary care provider. Return to the ED for any urgent or emergent medical condition. Med/Other Pt SpecificInfo: Prescription(s) given Scripts Ibuprofen (Ibuprofen) 800 Mg Tab 800 MG PO Q8H Y for Pain/Inflammation, #12 TAB 0 Refills Prov: Deisy Argueta MD 03/25/18 Disposition: 01 DISCHARGE HOME Condition: Stable Beulah Parker Mar 25, 2018 10:04
[2018-03-25] MEDS ORDERED: IBUPROFEN 800 MG TAB PO ONE (10:15)
[2018-03-25] MEDS ORDERED: IBUP1TAB7 PO (11:09)
[2018-03-25 11:17] VITALS: BP 138/87; TEMP 98.9
--- NOTE | 2018-03-25 11:24 | RADRPT ---
EXAM DATE: 03/25/2018 11:05 AM EDT AGE/SEX: 37 years / Male INDICATIONS: Right elbow pain after hitting on chair. CLINICAL DATA: This is the patient's initial encounter. Patient reports that signs and symptoms have been present for 1 day and indicates a pain score of 5/10. MEDICAL/SURGICAL HISTORY: None. None. COMPARISON: No prior exams available for comparison. FINDINGS: 4 views of the right elbow demonstrate no fracture or dislocation. No joint effusion is visualized. N o soft tissue abnormality or radiopaque foreign body is present. CONCLUSION: No acute abnormality is identified. Electronically signed by: Taurus Salinas MD 03/25/2018 11:23 AM EDT
== END 2018-03-25 11:17 | disposition home or self-care (01) ==
LOC: NEPD 09:48
DX: S50.01XA Contusion of right elbow, initial encounter (principal); W22.03XA Walked into furniture, initial encounter; I10 Essential (primary) hypertension; F17.200 Nicotine dependence, unspecified, uncomplicated
CPT/HCPCS: 73080; 99283